=== PATIENT | female | born 1960 | race Caucasian/White ===

== ENCOUNTER → 2016-10-12 | Outpatient (CLI) | payer OTHER | LOC: RAD 11:21 | DX: K62.89 Other specified diseases of anus and rectum (principal) | CPT/HCPCS: 71020 ==

== ENCOUNTER 2020-12-09 03:58 | Emergency (ER) | payer OTHER ==
[~2020-12-09 03:58] MED LIST: AMITRIPTYLINE H25 MG PO; ASPIR-LOW81 MG PO; COLACE 100MG C100 MG PO; ERYTHROMYCIN O3.5 GM OD; LEVOTHYROXINE88 MCG PO; LOPRESSOR 25 MG25 MG PO; MELATONIN3 MG PO; MICROZIDE12.5 MG PO; NITROSTAT0.4 MG SL; NORVASC 5 MG TAB5 MG PO; PROTONIX40 MG PO; RANEXA500 MG PO; ZOCOR40 MG PO
[2020-12-09 04:44] LABS: HEMOGLOBIN 12.6 gm/dl (12.3-15.3); RED BLOOD COUNT 4.28 M/UL (4.00-5.10); WHITE BLOOD COUNT 6.9 K/UL (4.5-11.0)
[2020-12-09 05:00] LABS: BUN/CREATININE RATIO 19 (0-10)
[2020-12-09] MEDS ORDERED: BENTYL 10MG CAP10 MG PO (11:41)
[2020-12-09] MEDS ORDERED: ZOFRAN ODT 4 MG4 MG PO (11:41)
== END 2020-12-09 11:45 | disposition home or self-care (01) ==
LOC: ER1 03:58
PROVIDERS: Physician Assistant
DX: K52.9 Noninfective gastroenteritis and colitis, unspecified (principal); Z88.5 Allergy status to narcotic agent; I10 Essential (primary) hypertension
CPT/HCPCS: 71045; 80053; 81001; 82550; 82553; 83690; 83735; 83874; 83880; 84484; 85025; 87086; 93005; 96374; 99285; J2405; Q9967

== ENCOUNTER 2021-02-22 14:42 | Emergency (ER) | payer OTHER ==
[~2021-02-22] VITALS: Ht 154.9 cm; Wt 92.1 kg
[~2021-02-22 14:42] MED LIST changes: +BENTYL 10MG CAP10 MG PO; +ZOFRAN ODT 4 MG4 MG PO
== END 2021-02-22 17:20 | disposition home or self-care (01) ==
LOC: ER1 14:42
DX: Z23 Encounter for immunization (principal); U07.1 COVID-19; I10 Essential (primary) hypertension; Z88.5 Allergy status to narcotic agent
CPT/HCPCS: 99283; M0243

== ENCOUNTER → 2022-04-01 | Outpatient (CLI) | payer OTHER | LOC: CT 08:30 | DX: R51.9 Headache, unspecified (principal) | CPT/HCPCS: 70470; Q9967 ==